=== PATIENT | male | born 1995 | race Caucasian/White ===

== ENCOUNTER 2016-12-05 04:16 | Emergency (ER) | payer SELFPAY ==
[~2016-12-05] VITALS: Ht 172.7 cm; Wt 56.0 kg
[2016-12-05 04:20] VITALS: Ht 172.7 cm; Wt 56.0 kg
[2016-12-05] MEDS ORDERED: PROM5SYR2 PO (06:24)
--- NOTE | 2016-12-05 06:35 | ERA ---
ER Documentation Chief Complaint Date/Time DATE: 12/05/16 TIME: 06:30 Chief Complaint cough x 2 weeks HPI 21-year-old otherwise healthy male presenting with complaint of cough. Patient was diagnosed with pneumonia 3 days ago in [place] and given a Z-Richard and he still has 2 days left of. Patient says "the cough hurts my lungs". Patient also complains of coryza. Symptoms started 2 weeks ago. Patient denies fever, chills, headache or other social manifestations. ROS All systems reviewed and are negative except as per history of present illness. Medications Home Meds Active Scripts Promethazine HCl/Codeine (Prometh-Codein 6.25-10 mg/5 ml) 5 Ml Syrup, 5 ML PO Q6 for 3 Days Prov:RICO BLACKMON PA-C 12/05/16 Allergies Allergies: Coded Allergies: No Known Allergy (Unverified , 12/05/16) PMhx/Soc History of Surgery: Yes (endoscopy, colonoscopy) Anesthesia Reaction: No Hx Miscellaneous Medical Probl: Yes (IBS, GERD) Hx Alcohol Use: No Hx Substance Use: No Hx Tobacco Use: No Smoking Status: Unknown if ever smoked Physical Exam Vitals Vital Signs Date Time Temp Pulse Resp B/P Pulse Ox O2 Delivery O2 Flow Rate FiO2 12/05/16 04:20 98.6 60 20 105/71 100 Physical Exam Const: Healthy appearing 21-year-old male with a significant number of tattoos Head: Atraumatic Eyes: Normal Conjunctiva ENT: Normal External Ears, Nose and Mouth. Neck: Full range of motion..~ No meningismus. Resp: Audible rales and rhonchi in the lower lung figueroa bilaterally. Percussion within normal limits in all lung figueroa bilaterally. Cardio: Regular rate and rhythm, no murmurs Abd: Soft, non tender, non distended. Normal bowel sounds Skin: No petechiae or rashes. Tattoos. Back: No midline or flank tenderness Ext: No cyanosis, or edema Neur: Awake and alert Psych: Normal Mood and Affect Procedures/MDM Otherwise healthy 21-year-old male with a chief complaint of cough. Patient is currently taking azithromycin and has 2 days left of treatment. Advised the patient to continue treatment. We will go ahead and give cough medicine 3 days. Have advised the patient that if this does not get better to return to the emergency department or seek a primary care provider. Have also advised the patient that he should seek a primary care provider for follow-up within the next 2-3 days. Have given handout of local clinics. Patient is stable at this time and I have little suspicion for endangerment of the airway. There is no dyspnea tripoding and on repeated evaluation symptoms and signs have not changed. Will discharge with discharge instructions and return precautions. Patient has verbally acknowledged that he understands the plan of treatment. Departure Diagnosis: Primary Impression: Pneumonia Qualified Code: J18.9 - Pneumonia due to infectious organism, unspecified laterality, unspecified part of lung Additional Impressions: Cough History of pneumonia Condition: Stable Patient Instructions: Cough, Chronic, Uncertain Cause, (Adult) Referrals: [facility] YOU HAVE RECEIVED A MEDICAL SCREENING EXAM AND THE RESULTS INDICATE THAT YOU DO NOT HAVE A CONDITION THAT REQUIRES URGENT TREATMENT IN THE EMERGENCY DEPARTMENT. FURTHER EVALUATION AND TREATMENT OF YOUR CONDITION CAN WAIT UNTIL YOU ARE SEEN IN YOUR DOCTORS OFFICE WITHIN THE NEXT 1-2 DAYS. IT IS YOUR RESPONSIBILITY TO MAKE AN APPOINTMENT FOR FOLOW-UP CARE. IF YOU HAVE A PRIMARY DOCTOR --you should call your primary doctor and schedule an appointment IF YOU DO NOT HAVE A PRIMARY DOCTOR YOU CAN CALL OUR PHYSICIAN REFERRAL HOTLINE AT IF YOU CAN NOT AFFORD TO SEE A PHYSICIAN YOU CAN CHOSE FROM THE FOLLOWING [facility] [address]. [facility] [address] [facility] [facility] [address] [facility] [facility] [address] [facility]. [facility] [address] [facility]. [facility]. [address] Additional Instructions: Follow up with your PCP within the next 1-3 days for a more thorough evaluation and a possible referral to a specialist. Return the the emergency department immediately if symptoms worsen or change. If you have any questions regarding medications, ask your pharmacist or us before you leave. If any adverse reactions occur while taking your medications, discontinue the treatment and return to the emergency department immediately. Take your medications as directed, and complete the entire course of treatment. RICO BLACKMON PA-C December 05, 2016 06:35
[2016-12-05 06:54] VITALS: BP 110/72; PULSE 78; RESP 16; TEMP 98.4
== END 2016-12-05 06:54 | disposition home or self-care (01) ==
LOC: FTE 04:16
DX: J18.9 Pneumonia, unspecified organism (principal)
CPT/HCPCS: 99283